=== PATIENT | male | born 1975 | race Native Hawaiian/Other Pacific Islander ===

== ENCOUNTER 2023-02-17 10:00 | Emergency (ER) | payer OTHER, BC ==
[~2023-02-17] VITALS: Ht 177.8 cm; Wt 111.0 kg
[2023-02-17 10:07] VITALS: BP 148/91
[2023-02-17 10:15] VITALS: BP 146/94
[2023-02-17 10:30] VITALS: BP 147/93
[2023-02-17] MEDS ORDERED: KEFLEX500 MG PO (11:33)
[2023-02-17 11:38] VITALS: BP 147/93
== END 2023-02-17 11:39 | disposition home or self-care (01) | DRG 605 ==
LOC: ED 10:00
DX: S61.211A Laceration without foreign body of left index finger without damage to nail, initial encounter (principal); I10 Essential (primary) hypertension; W23.0XXA Caught, crushed, jammed, or pinched between moving objects, initial encounter; Y93.89 Activity, other specified; Y92.89 Other specified places as the place of occurrence of the external cause; Y99.0 Civilian activity done for income or pay